=== PATIENT | female | born 1995 | race Caucasian/White ===

== ENCOUNTER 2023-03-01 13:23 | Emergency (ER) | payer OTHER ==
[2023-03-01 13:34] VITALS: BMI 24.7
[2023-03-01] MEDS ORDERED: ONDANSETRON 4 MG/2 ML VIAL IVPUSH ONE (13:57)
[2023-03-01] MEDS ORDERED: ACETAMINOPHEN 1000 MG/100 ML BAG IVPB ONE (13:57)
[2023-03-01] MEDS ORDERED: ONDANSETRON 4 MG/2 ML VIAL ONE (14:10)
[2023-03-01] MEDS ORDERED: ACETAMINOPHEN INJECTION 100 ML IVPB ONE (14:25)
[2023-03-01] MEDS ORDERED: FAMOTIDINE 20 MG/50 ML IVPB 20 MG/50 ML MG IVPB ONE ×2 (14:27→14:32)
[2023-03-01 14:58] LABS: HCG,QUALITATIVE URINE Negative
[2023-03-01 15:03] LABS: EPI CELLS >36 /uL (0-25.1); HYALINE CASTS 2 /uL (0-3.1); PH,URINE 6.5 (5.0-8.0); URINE APPEARANCE CLEAR; URINE BACTERIA 892 /uL (0-1359); URINE BILIRUBIN 1+ (NEGATIVE); URINE COLOR DK YELLOW; URINE GLUCOSE (UA) NEGATIVE (NEGATIVE); URINE KETONE 1+ (NEGATIVE); URINE LEUK ESTERASE TRACE (NEGATIVE); URINE NITRITE NEGATIVE (NEGATIVE); URINE PROTEIN 1+ (NEGATIVE); URINE RBC 9 /uL (0-23.9); URINE WBC 63 /uL (0-25.8)
[2023-03-01 15:08] LABS: BASO % 0.3 % (0-2.0); EOS % 0.5 % (0-4.5); HEMATOCRIT 42.1 % (32.4-45.2); HEMOGLOBIN 14.2 GM/dL (10.7-15.3); LYMPH % 6.3 % (8-40); MCHC 33.7 g/dl (32.0-36.0); MEAN PLT VOLUME 8.7 fl (7.5-11.1); MONO % 3.2 % (3.8-10.2); NEUT % 89.7 % (42.8-82.8); PLATELET COUNT 184 10^3/uL (134-434); RDW 14.7 % (11.6-15.6); WHITE BLOOD COUNT 9.8 K/mm3 (4.0-10.0)
[2023-03-01 15:19] LABS: POTASSIUM 4.1 mmol/L (3.5-5.1)
[2023-03-01 15:21] LABS: BLOOD UREA NITROGEN 23.1 mg/dL (7-18); CALCIUM 8.8 mg/dL (8.5-10.1)
[2023-03-01 15:23] LABS: CREATININE 0.6 mg/dL (0.55-1.3)
[2023-03-01 15:26] LABS: BILIRUBIN,TOTAL 0.4 mg/dL (0.2-1); TOT PROT 7.7 g/dl (6.4-8.2)
[2023-03-01 16:03] VITALS: RESP 18; TEMP 98.1
[2023-03-01 16:17] VITALS: BP 124/79; PULSE 93
== END 2023-03-01 17:33 | disposition home or self-care (01) ==
LOC: JER 13:23
PROC: 3E033GC Introduction of Other Therapeutic Substance into Peripheral Vein, Percutaneous Approach (ICD-10-PCS; principal; 2023-03-01)
PROC: 3E033GC Introduction of Other Therapeutic Substance into Peripheral Vein, Percutaneous Approach (ICD-10-PCS; 2023-03-01)
PROC: 3E033NZ Introduction of Analgesics, Hypnotics, Sedatives into Peripheral Vein, Percutaneous Approach (ICD-10-PCS; 2023-03-01)
DX: R11.10 Vomiting, unspecified (principal); R10.2 Pelvic and perineal pain; R10.10 Upper abdominal pain, unspecified
CPT/HCPCS: 36415; 80053; 81003; 83690; 84703; 85025; 99284-25